=== PATIENT | male | born 1985 | race African-American/Black ===

== ENCOUNTER 2016-10-06 17:03 | Emergency (ER) | payer OTHER ==
[~2016-10-06] VITALS: Ht 167.6 cm; Wt 63.6 kg
[~2016-10-06 17:03] MED LIST: ALBUTEROL0.09 MG/A1 IH; AMOXICILLIN 50500 MG PO; AMOXICILLIN 8751 TAB PO; BACTRIM DS 8001 TAB PO; CEPHALEXIN250 M1 PO; CEPHALEXIN500 M1 PO; MEDROL 4MG DOSPA4 MG PO; NORCO 325 MG-51 TAB PO; NORCO 325 MG-7.1 TAB PO; PHENERGAN 25 TA25 MG PO; PREDNISONE20 MG PO; PROVENTIL0.09 MG/A1 IH; VENTOLIN0.09 MG IH
[2016-10-06 17:06] VITALS: BP 131/92; PULSE 91; TEMP 99.6
[2016-10-06] MEDS ORDERED: CEPHALEXIN500 M1 PO (17:37)
[2016-10-06] MEDS ORDERED: SEPTRA DS 8001 TAB PO (17:37)
== END 2016-10-06 17:51 | disposition home or self-care (01) ==
LOC: COL.ER 17:03
DX: R22.0 Localized swelling, mass and lump, head (principal); J45.909 Unspecified asthma, uncomplicated; F17.210 Nicotine dependence, cigarettes, uncomplicated

== ENCOUNTER 2017-09-27 13:06 | Emergency (ER) | payer SELFPAY ==
[~2017-09-27] VITALS: Ht 172.7 cm; Wt 62.7 kg
[~2017-09-27 13:06] MED LIST changes: +SEPTRA DS 8001 TAB PO
[2017-09-27 13:12] VITALS: BP 133/93; TEMP 100.1
[2017-09-27] MEDS ORDERED: CEPHALEXIN500 M1 PO (15:56)
[2017-09-27] MEDS ORDERED: BACTRIM DS 8001 TAB PO (15:56)
[2017-09-27 16:04] VITALS: PULSE 81
== END 2017-09-27 16:04 | disposition home or self-care (01) ==
LOC: COL.ER 13:06
DX: K11.20 Sialoadenitis, unspecified (principal)

== ENCOUNTER 2017-09-29 20:24 | Emergency (ER) | payer SELFPAY ==
[~2017-09-29] VITALS: Ht 172.7 cm; Wt 62.7 kg
[2017-09-29 20:27] VITALS: TEMP 99.1
[2017-09-29 22:34] VITALS: BP 126/79; PULSE 89
== END 2017-09-29 22:40 | disposition home or self-care (01) ==
LOC: COL.ER 20:24
DX: K05.219 Aggressive periodontitis, localized, unspecified severity (principal)
CPT/HCPCS: J1170

== ENCOUNTER 2018-05-21 12:09 | Emergency (ER) | payer SELFPAY ==
[~2018-05-21] VITALS: Ht 167.6 cm; Wt 59.1 kg
[2018-05-21 12:24] VITALS: BP 147/91; TEMP 99.5
[2018-05-21] MEDS ORDERED: BACTRIM DS 8001 TAB PO (13:58)
[2018-05-21 14:09] VITALS: PULSE 65
== END 2018-05-21 14:16 | disposition home or self-care (01) ==
LOC: COL.ER 12:09
DX: L72.3 Sebaceous cyst (principal); J45.909 Unspecified asthma, uncomplicated; F17.210 Nicotine dependence, cigarettes, uncomplicated

== ENCOUNTER → 2018-05-26 | Emergency (ER) | payer SELFPAY ==
[2018-05-26 21:39] VITALS: BP 129/80; PULSE 80; TEMP 98
== END ==
LOC: COL.ER 20:28
DX: S01.412D Laceration without foreign body of left cheek and temporomandibular area, subsequent encounter (principal); X58.XXXD Exposure to other specified factors, subsequent encounter

== ENCOUNTER 2019-08-25 13:14 | Emergency (ER) | payer SELFPAY ==
[~2019-08-25] VITALS: Ht 167.6 cm; Wt 59.1 kg
[2019-08-25 13:18] VITALS: TEMP 98.8
[2019-08-25 13:32] LABS: COLLECTION METHOD CLEAN CATCH
[2019-08-25 13:51] LABS: TRICYCLIC ANTIDEPRESS URINE NEGATIVE
[2019-08-25 13:53] LABS: HYALINE CAST >12 /lpf; MUCOUS Present /lpf; PH 5 (5-8); URINE APPEARANCE Cloudy; URINE BACTERIA Rare /hpf; URINE BILIRUBIN Negative (NEGATIVE); URINE BLOOD 1+ (NEGATIVE); URINE COLOR Amber; URINE GLUCOSE Negative (NEGATIVE); URINE KETONE Trace (NEGATIVE); URINE LEUKOCYTE ESTERASE Negative (NEGATIVE); URINE NITRATE Negative (NEGATIVE); URINE PROTEIN(semi-quant) 2+ (NEGATIVE)
[2019-08-25 13:53] LABS: HEMATOCRIT 42.8 % (42.0-52.0); HEMOGLOBIN 14.9 g/dl (13.5-18.0); MEAN CELL VOLUME 95 fl (80.0-100.0); MEAN CORPUSCULAR HEMOGLOBIN 33 pg (27.0-31.0); MEAN CORPUSCULAR HGB CONC 35 g/dl (33.0-37.0); MEAN PLATELET VOLUME 12.6 fl (7.4-10.4); PLATELET COUNT 77 K/mm3 (130-400); RED BLOOD COUNT 4.53 M/mm3 (4.20-5.60); REDCELL DISTRIBUTION WIDTH-CV 14.1 % (11.5-14.5)
[2019-08-25 14:07] LABS: ALBUMIN 3.9 gm/dL (3.5-5.0); BILIRUBIN,TOTAL 0.8 mg/dL (0.0-1.0); CALCIUM 9.1 mg/dL (8.4-10.2); CREATININE, serum 0.82 (0.66-1.25); POTASSIUM 3.6 mmol/L (3.4-5.0); TOTAL PROTEIN 7.8 gm/dL (6.4-8.2)
[2019-08-25 14:21] LABS: PROLACTIN 41.9 ng/mL (3.7-17.9)
[2019-08-25 15:05] LABS: BAND 2 % (0-10); EOSINOPHIL 1 % (0-4); METAMYELOCYTE 2 % (0-0); NEUTROPHILS 62 % (42.0-75.2); PLATELET ESTIMATE NORMAL (NORMAL)
[2019-08-25 15:07] LABS: LYMPHOCYTE 20 % (20.0-51.0)
[2019-08-25 15:49] VITALS: BP 117/82; PULSE 85
== END 2019-08-25 15:50 | disposition home or self-care (01) ==
LOC: COL.ER 13:14
PROVIDERS: Emergency Medicine
DX: G40.909 Epilepsy, unspecified, not intractable, without status epilepticus (principal)
CPT/HCPCS: J2060

== ENCOUNTER 2021-11-10 12:26 | Emergency (ER) | payer OTHER ==
[~2021-11-10] VITALS: Ht 167.6 cm; Wt 59.1 kg
[2021-11-10 12:53] VITALS: TEMP 98.9
[2021-11-10] MEDS ORDERED: AMOXICILLIN 8751 TAB PO (14:15)
[2021-11-10 14:44] VITALS: BP 127/77; PULSE 88
== END 2021-11-10 14:54 | disposition home or self-care (01) ==
LOC: COL.ER 12:26
DX: K05.30 Chronic periodontitis, unspecified (principal); K12.2 Cellulitis and abscess of mouth; K03.81 Cracked tooth; F17.210 Nicotine dependence, cigarettes, uncomplicated; Z28.310 Unvaccinated for COVID-19